=== PATIENT | female | born 1965 | race Caucasian/White ===

== ENCOUNTER → 2024-05-29 12:00 | Outpatient (REF) | payer BC, SELFPAY | LOC: HWRAD 12:00 | PROVIDERS: ATTENDING PHYSICIAN Family Medicine | DX: Z20.828 Contact with and (suspected) exposure to other viral communicable diseases (principal); J30.9 Allergic rhinitis, unspecified; R09.81 Nasal congestion; R05.9 Cough, unspecified; R10.9 Unspecified abdominal pain | CPT/HCPCS: 71046; 71100 ==